=== PATIENT | male | born 1945 | race Caucasian/White ===

== ENCOUNTER 2017-07-26 11:56 | Emergency (ER) | payer MEDICARE, MEDICAID ==
[~2017-07-26] VITALS: Ht 185.4 cm; Wt 72.6 kg
[~2017-07-26 11:56] MED LIST: ASPI-231 PO; BENA10TA9 PO; CLIN1CAP4 PO; CLOP75TA28 PO; DIL120C PO; FER325T PO; FURO40TA4 PO; POTA20TA53 PO; RISP0.5T45 PO; SACC250C PO; SIMV-8 PO; TAMS0.4C36 PO
[2017-07-26 15:21] VITALS: BP 103/61
== END 2017-07-26 16:09 | disposition home or self-care (01) ==
LOC: EDBD 11:56 → ER 11:56
DX: S66.912A Strain of unspecified muscle, fascia and tendon at wrist and hand level, left hand, initial encounter (principal); S70.02XA Contusion of left hip, initial encounter; I11.0 Hypertensive heart disease with heart failure; I50.9 Heart failure, unspecified; J44.9 Chronic obstructive pulmonary disease, unspecified; F17.210 Nicotine dependence, cigarettes, uncomplicated; Z95.0 Presence of cardiac pacemaker; Z89.512 Acquired absence of left leg below knee; Z79.82 Long term (current) use of aspirin; W06.XXXA Fall from bed, initial encounter; Y93.84 Activity, sleeping; Y99.8 Other external cause status; Y92.89 Other specified places as the place of occurrence of the external cause
CPT/HCPCS: 29125; 73100; 73502; 94761

== ENCOUNTER 2019-12-23 00:04 | Emergency (ER) | payer MEDICARE, MEDICAID ==
[~2019-12-23] VITALS: Ht 175.3 cm; Wt 86.2 kg
[~2019-12-23 00:04] MED LIST changes: -CLIN1CAP4 PO; +CLIN300C8 PO; -DIL120C PO; +DILT120C12 PO; +POTA-220 PO; -POTA20TA53 PO
[2019-12-23] MEDS ORDERED: EPINEPHrine HCL 1 MG/10 ML SYRG IV ONE (00:07)
[2019-12-23] MEDS ORDERED: SODIUM BICARBONATE 8.4% INJ 50ML SYRINGE IV ONE (00:07)
== END 2019-12-23 03:02 | disposition expired ==
LOC: EDBD 00:04 → ER 00:06
DX: I46.9 Cardiac arrest, cause unspecified (principal); E11.9 Type 2 diabetes mellitus without complications; F03.90 Unspecified dementia, unspecified severity, without behavioral disturbance, psychotic disturbance, mood disturbance, and anxiety; E66.9 Obesity, unspecified; I10 Essential (primary) hypertension; E78.5 Hyperlipidemia, unspecified; J44.9 Chronic obstructive pulmonary disease, unspecified; F17.210 Nicotine dependence, cigarettes, uncomplicated; F32.9 Major depressive disorder, single episode, unspecified; Z95.0 Presence of cardiac pacemaker; Z68.28 Body mass index [BMI] 28.0-28.9, adult; Z89.512 Acquired absence of left leg below knee
CPT/HCPCS: 31500; 92950; 99285; J0171